=== PATIENT | male | born 1935 | race African-American/Black ===

== ENCOUNTER 2017-04-24 15:10 | Outpatient (CLI) | payer MEDICARE, OTHER ==
[2017-04-24 15:39] LABS: Basophils % (Auto) 0.7 % (0.0-1.8); Eosinophils % (Auto) 5.2 % (0.0-4.3); Hematocrit 43.1 % (35.5-45.6); Hemoglobin 14.6 gm/dl (11.8-15.2); Mean Corpuscular HGB Conc 34 % (32-34); Mean Corpuscular Hemoglobin 32 pg (28-32); Mean Corpuscular Volume 95 fl (84-94); Red Blood Count 4.54 M/mm3 (3.65-5.03); Red Cell Distribution Width 14.7 % (13.2-15.2); White Blood Count 8.6 K/mm3 (4.5-11.0)
[2017-04-24 15:48] LABS: BUN/Creatinine Ratio 15.83; Calcium 9.4 mg/dL (8.4-10.2); Chloride 99.2 mmol/L (98-107); Phosphorous 4.2 mg/dL (2.5-4.5); Potassium 4.7 mmol/L (3.6-5.0)
[2017-04-24 16:35] LABS: Platelet Count 90 K/mm3 (140-440)
== END 2017-04-24 15:11 | disposition home or self-care (01) ==
LOC: LAB 15:10
PROVIDERS: ATTEND Internal Medicine Nephrology
DX: N18.3 Chronic kidney disease, stage 3 (moderate) (principal)
CPT/HCPCS: 36415; 80048; 82040; 84100; 85025